=== PATIENT | female | born 1950 | race African-American/Black ===

== ENCOUNTER 2017-06-04 09:43 | Day surgery (SDC) | payer OTHER ==
[~2017-06-04 09:43] MED LIST: LIDOCAINE 1% PF 2 ML VIAL. ID; METHYLENE BLUE 1% 10 ML VIAL.; MORPHINE SULFATE 4 MG/ML DISP.SYRIN. IV; ONDANSETRON PF 4 MG/2 ML VIAL. IV; PROCHLORPERAZINE 10 MG/2 ML VIAL. IV; fentaNYL PF VIAL 100 MCG/2 ML VIAL IV
[2017-06-04] MEDS: LIDOCAINE WITH 8.4% SOD BICARB 3 ML DISP.SYRIN. INJ (10:15)
[2017-06-04] MEDS ORDERED: METHYLENE BLUE 1% 10 ML VIAL. IJ (10:15)
[2017-06-04] MEDS: IV RINGERS,LACTATED 1000ML 1,000 ML IV (10:29)
[2017-06-04 10:33] LABS: POC GLUCOSE 105 mg/dL (70-99)
[2017-06-04 10:36] LABS: ADD MAN DIFF? NO
[2017-06-04 10:40] LABS: BASO # 0.1 x10^3/uL (0.0-0.2); BASO % 1 % (0-3); EOS # 0.1 x10^3/uL (0.0-0.7); EOS % 1 % (0-3); HEMATOCRIT 34.8 % (36.0-47.0); HEMOGLOBIN 11.5 g/dL (12.0-15.5); LYMPH # 2.4 x10^3/uL (1.0-4.8); LYMPH % 31 % (24-48); MEAN CORPUSCULAR HEMOGLOBIN 27 pg (25-35); MEAN CORPUSCULAR HGB CONC 33 g/dL (31-37); MEAN CORPUSCULAR VOLUME 82 fL (79-100); MONO # 0.6 x10^3/uL (0.0-1.1); MONO % 7 % (0-9); NEUT # 4.7 x10^3uL (1.8-7.7); NEUT % 60 % (31-73); PLATELET COUNT 336 x10^3/uL (140-400); RED BLOOD COUNT 4.23 x10^6/uL (3.50-5.40); RED CELL DISTRIBUTION WIDTH 13.9 % (11.5-14.5); WHITE BLOOD COUNT 7.8 x10^3/uL (4.0-11.0)
[2017-06-04 10:50] LABS: ANION GAP 7 (6-14); BLOOD UREA NITROGEN 13 mg/dL (7-20); BUN/CREATININE RATIO 14 (6-20); CALCIUM 9.8 mg/dL (8.5-10.1); CARBON DIOXIDE 31 mmol/L (21-32); CHLORIDE 100 mmol/L (98-107); CREATININE 0.9 mg/dL (0.6-1.0); GFR 75.6; GLUCOSE 122 mg/dL (70-99); INR 1.1 (0.8-1.1); POTASSIUM 3.7 mmol/L (3.5-5.1); PROTHROMBIN TIME PATIENT 13.5 SEC (11.7-14.0); SODIUM 138 mmol/L (136-145)
[2017-06-04 10:56] LABS: ALBUMIN 3.8 g/dL (3.4-5.0); ALBUMIN/GLOBULIN RATIO 0.8 (1.0-1.7); ALK PHOS 120 U/L (46-116); ALT (SGPT) 23 U/L (14-59); AST (SGOT) 26 U/L (15-37); TOTAL BILIRUBIN 0.4 mg/dL (0.2-1.0); TOTAL PROTEIN 8.4 g/dL (6.4-8.2)
[2017-06-04] MEDS ORDERED: ROCURONIUM 50 MG/5 ML VIAL. (11:04)
[2017-06-04] MEDS ORDERED: DEXAMETHASONE SOD PHOS 20 MG/5 ML VIAL. (11:04)
[2017-06-04] MEDS ORDERED: fentaNYL PF VIAL 100 MCG/2 ML VIAL (11:04)
[2017-06-04] MEDS ORDERED: LIDOCAINE 1% PF 5 ML VIAL. (11:04)
[2017-06-04] MEDS ORDERED: ONDANSETRON PF 4 MG/2 ML VIAL. (11:04)
[2017-06-04] MEDS ORDERED: PROPOFOL 20 ML IV (11:04)
[2017-06-04] MEDS ORDERED: SUCCINYLCHOLINE 200 MG/10 ML VIAL. (12:01)
[2017-06-04] MEDS ORDERED: SEVOFLURANE 61 TO 120 MINUTES. IH (13:01)
[2017-06-04 13:50] LABS: POC GLUCOSE 137 mg/dL (70-99)
[2017-06-04] MEDS: HYDROcodone/APAP 5/325MG 1 TAB TABLET PO (14:08)
== END 2017-06-04 15:11 | disposition home or self-care (01) ==
LOC: SURG 09:43
DX: D24.2 Benign neoplasm of left breast (principal); R92.0 Mammographic microcalcification found on diagnostic imaging of breast; I10 Essential (primary) hypertension; E11.9 Type 2 diabetes mellitus without complications; Z79.4 Long term (current) use of insulin; Z90.710 Acquired absence of both cervix and uterus; Z80.3 Family history of malignant neoplasm of breast; Z80.41 Family history of malignant neoplasm of ovary; Z98.890 Other specified postprocedural states; Z79.899 Other long term (current) drug therapy
CPT/HCPCS: 19125; 19281; 36415; 76098; 80053; 82962; 85025; 85610; 88305; J0330; J0690; J1100; J2405; J2704; J3010; Q9968